=== PATIENT | male | born 1945 | race Caucasian/White ===

== ENCOUNTER → 2016-08-23 | Day surgery (SDC) | payer MEDICARE ==
[~2016-08-23] VITALS: Ht 175.3 cm; Wt 59.8 kg
[~2016-08-23] MED LIST: ACETAMINOPHEN 1000 MG/100 ML VIAL IV ONE; ACETAMINOPHEN/HYDROcodone 325 MG/10 MG TAB PO PRN; BUPIVACAINE LIPOSOME PF 1.3% 20 ML VIAL INFIL ONE; CHLORHEXIDINE GLUCONATE 2 % 1 PACK (2 CLOTHS) TOPICAL PRN; DEXA2TAB PO; FAMOTIDINE 20 MG/2 ML VIAL ONE; GABA300C5; GELFOAM SIZE 100 ONE; GENTAMICIN SULFATE 80 MG/2 ML VIAL ONE; HYDR-3583 PO; HYDROmorphone HCL PF 1 MG/ML VIAL IV PRN; HYDROmorphone HCL PF 2 MG/ML VIAL ONE; INSULIN HUMAN REGULAR 1,000 UNITS/10 ML VIAL SQ PRN; LACTATED RINGER'S 1000 ML INJ 1,000 ML IV ONE; LACTATED RINGER'S 1000 ML IV PRN; LIDOCAINE 1%/EPINEPHrine 1:100,000 SOLN 20 ML VIAL ONE; LISI-515 PO; METOPROLOL TARTRATE 25 MG TAB PO PRN; MIDAZOLAM HCL 2 MG/2 ML VIAL ONE; NEOSTIGMINE 3 MG/3 ML SYR IV ONE; ONDANSETRON HCL 4 MG/2 ML VIAL IV PUSH ONE; ONDANSETRON HCL 4 MG/2 ML VIAL IV PUSH PRN; PANT40TA3 PO; PHENYLEPH/NS 1000 MCG/10 ML SYR IV ONE; POVIDONE IODINE 5% (ANTISEPSIS KIT) 4 APPLICATIONS EACH NARE PRN; PROPOFOL 200 MG/20 ML AMP IV ONE; SODIUM CHLORID 0.9% 500 ML IV PRN; THROMBIN (TOPICAL) 5,000 UNIT VIAL ONE; TRAM50TA PO; ceFAZolin 1,000 MG/NS 100 ML IV SCH; ceFAZolin INJ 1,000 MG VIAL IV ONE; ePHEDrine/NS 25 MG/5 ML SYR IV ONE; fentaNYL CITRATE 250 MCG/5 ML AMP ONE
[2016-08-23 07:07] VITALS: BP 128/67; PULSE 49; RESP 16; TEMP 98.1; O2SAT 100
[2016-08-23] MEDS: LACTATED RINGER'S 1000 ML INJ 1,000 ML IV SCH ×2 (07:10→07:16)
--- NOTE | 2016-08-23 07:33 | RADRPT ---
EXAM DATE/TIME: 08/23/2016 06:57 [facility] COMPARISON: CHEST SINGLE AP, October 28, 2009, 9:39. INDICATIONS : Evaluate for pneumothorax, pneumonia or communicable disease. Preop chest for laminectomy today, no c hest complaints at this time, smoker, no chest surgery MEDICAL HISTORY : None. SURGICAL HISTORY : None. ENCOUNTER: Initial ACUITY: 1 day PAIN SCORE: 0/10 LOCATION: Bilateral chest FINDINGS: A single view of the chest demonstrates the lungs to be symmetrically aerated without evidence of mas s, infiltrate or effusion. The cardiomediastinal contours are unremarkable. Osseous structures are intact. CONCLUSION: No acute disease. Christian Swanson MD FACR on August 23, 2016 at 7:30 Board Certified Radiologist. This report was verified electronically.
[2016-08-23 07:36] LABS: AUTOMATED NEUTROPHIL # 3.2 TH/MM3 (1.8-7.7); BASOPHIL % 0.6 % (0.0-2.0); EOSINOPHIL # 0.1 TH/MM3 (0-0.4); EOSINOPHIL % 2.5 % (0.0-4.0); HEMATOCRIT 42.7 % (39.0-51.0); HEMO FLAGS DIFF FINAL; LYMPH % 30.4 % (9.0-44.0); LYMPHOCYTE # 1.8 TH/MM3 (1.0-4.8); MEAN CELL VOLUME 95.6 FL (80.0-100.0); MEAN CORPUSCULAR HEMOGLOBIN 31.6 PG (27.0-34.0); MEAN CORPUSCULAR HGB CONC 33.1 % (32.0-36.0); MONO % 11.3 % (0.0-8.0); NEUT % 55.2 % (16.0-70.0); PLATELET COUNT 158 TH/MM3 (150-450); RED BLOOD COUNT 4.46 MIL/MM3 (4.50-5.90); RED CELL DISTRIBUTION WIDTH 14.1 % (11.6-17.2); WHITE BLOOD COUNT 5.8 TH/MM3 (4.0-11.0)
[2016-08-23 07:43] LABS: APTT (PATIENT) 27.2 SEC (24.3-30.1); PROTHROMBIN TIME - PATIENT 10.7 SEC (9.8-11.6)
[2016-08-23 08:02] LABS: BICARBONATE 27.9 MEQ/L (21.0-32.0); POTASSIUM 4.1 MEQ/L (3.5-5.1)
--- NOTE | 2016-08-23 12:53 | HHI.DCPOC ---
Discharge Care Plan Diagnosis: (1) Lumbar stenosis Your Health Problems Are: Difficulty with ADL Incision/Drains Chronic Pain Goals to Promote Your Health * To prevent worsening of your condition and complications * To maintain your health at the optimal level Directions to Meet Your Goals Take your medications as prescribed Follow your dietary instruction Follow activity as directed Keep your appointments as scheduled Take your immunizations and boosters as scheduled If your symptoms worsen call your PCP, if no PCP go to Urgent Care Center or Emergency Room Smoking is Dangerous to Your Health. Avoid second hand smoke Call the 24-hour hour crisis hotline for domestic abuse at Kobi Rizzo MD August 23, 2016 12:53
--- NOTE | 2016-08-23 13:06 | PD.OP ---
Operative Report Date of Surgery: August 23, 2016 Preoperative Diagnosis: (1) Lumbar stenosis (2) Left lumbar radiculopathy 1. L4 5 stenosis with bilateral L5 radicular symptoms, neurogenic claudication 2. Central to left L5-S1 herniated nucleus pulposus 3. Left S1 radiculopathy Postoperative Diagnosis: (1) Lumbar stenosis (2) Left lumbar radiculopathy 1. L4 5 stenosis with bilateral L5 radicular symptoms, neurogenic claudication 2. Central to left L5-S1 herniated nucleus pulposus 3. Left S1 radiculopathy Procedure: 1. Bilateral L4 5 decompressive semi-laminectomy, medial facetectomy, decompression of thecal sac and bilateral L5 nerve root-microtechnique 2. Left L5 semi-hemilaminectomy, L5-S1 microdiscectomy Anesthesia: Gen. Surgeon: Kobi Rizzo Electrical Wiring Lineman(s): Abdoul Vick Operation and Findings: Procedure in detail: The patient was brought into the operating room and general endotracheal anesthesia induced without difficulty. URBAN hose and sequential compression devices were placed. The Villa catheter was placed. Lines were established by anesthesia. The patient was positioned on the concentric Juan M table with the side bolsters and all extremities appropriately padded. Appropriate time-out procedure was performed with all personnel present and in agreement. 1% Xylocaine with epinephrine was used for local infiltration over the incision site which was made just to the left of midline at the L5 level. The incision was carried sharply down to the lumbodorsal fascia which was incised approximately 1 cm lateral to the spinous processes. Reid elevator was used for subperiosteal elevation of paraspinous musculature and fascia away from the lamina at the L45 and subsequently the L5-S1 levels. The deep self- retaining retractor was placed sequentially at the appropriate level for each portion of the procedure. The appropriate levels were verified with intraoperative C-arm. Microscope was moved into place and used for the remainder of the procedure including the closure. At the L4 5 level starting on the left side and then working across the midline to the opposite side, the TPS drill with a 5 mm bone bur followed by the 4 mm nishi bur was used to remove the inferior two thirds of the more cephalad lamina and the superior aspect of the more caudal lamina along with a moderate amount of the bilateral medial facet, taking care not to disrupt the integrity of the facet or pars intra-articularis. The hypertrophied ligamentum flavum at each level was elevated away from the thecal sac with the thin ligament dissector and resected with the 15 blade knife and the Kerrison rongeur out to the level of the deep lateral recess to completely decompress the thecal sac and exiting nerve roots. The exiting L5 nerve roots were followed to the level of the medial pedicle on each side to ensure that they were well decompressed. Next, the retractor was moved down to the L5-S1 level on the left side and the level verified with intraoperative C-arm The 3 mm Kerrison rongeur was used to remove a small amount of the inferior left L5 lamina and the thin ligament dissector was used to release the ligamentum flavum which was elevated away from the thecal sac and resected with the Kerrison rongeur. Care was taken to preserve the facet. The exiting left S1 nerve root was located as it coursed around the left S1 pedicle and was followed back up to the thecal sac. The thecal sac and left S1 nerve root were gently retracted medially revealing an underlying annular tear with fragments of herniated disc material protruding through the tear. The annular tear was enlarged with the 11 blade knife and fragments of subannular herniated disc material were pushed down away from the thecal sac and removed with the micro- biopsy forceps. The patient appeared to have significantly desiccated disc material and was felt to be at high risk for recurrent disc herniation. Thus a small window was incised with the 11 blade knife in the annulus and a more thorough removal of desiccated disc within the L5-S1 intervertebral disc space performed. The nerve roots appeared well decompressed at the end of the procedure. No spinal fluid leakage was encountered. The disc and annulus at L4 5 level was visualized to make sure that there was no significant disc displacement or herniation. Bleeding was carefully controlled with the bipolar forceps. The closure was performed with 0 Vicryl interrupted for the deep and superficial fascia, with 3-0 Vicryl interrupted subcutaneous closure, and 4-0 Vicryl running subcuticular closure. A dressing of sterile Mastisol, Steri- Strips, and Primapore was placed. The patient was taken to recovery room in stable condition. All counts were correct at the end of the case. Estimated blood loss was 100 cc. No specimen was sent to pathology Kobi Rizzo MD August 23, 2016 13:06
--- NOTE | 2016-08-23 13:45 | RADRPT ---
EXAM DATE/TIME: 08/23/2016 09:17 [facility] COMPARISON: No previous studies available for comparison. INDICATIONS : Level localization MEDICAL HISTORY : Hypertension. Chronic obstructive pulmonary disease. Arthritis. Smoker. SURGICAL HISTORY : None. ENCOUNTER: Initial ACUITY: 1 day PAIN SCORE: Non-responsive. LOCATION: Lumbar spine. FINDINGS: A single lateral view of the lumbar spine was performed. Level localization device was placed at the second from the bottom disc space level which I suspect is L4-5.. CONCLUSION: Level localization device at the second from the bottom disc space level. Odin Irene MD on August 23, 2016 at 13:42 Board Certified Radiologist. This report was verified electronically.
[2016-08-23 14:00] VITALS: BP 140/70; PULSE 53; RESP 16; TEMP 96.9; O2SAT 97
--- NOTE | 2016-08-23 15:13 | EKG ---
Date Performed: 08/23/2016 Time Performed: 06:51:32 PTAGE: 70 years EKG: SINUS BRADYCARDIA BORDERLINE ECG PREVIOUS TRACING : 10/28/2009 15.47 Compared to previous tracing, the sinus rate is slower. DOCTOR: Lupillo Larkin Interpretating Date/Time 08/23/2016 15:13:12
== END | disposition home or self-care (01) ==
LOC: HSDC 06:16
PROVIDERS: ATTEND Neurological Surgery
DX: M51.17 Intervertebral disc disorders with radiculopathy, lumbosacral region (principal); M48.06 Spinal stenosis, lumbar region; G95.19 Other vascular myelopathies; I10 Essential (primary) hypertension; J44.9 Chronic obstructive pulmonary disease, unspecified; M19.90 Unspecified osteoarthritis, unspecified site; F17.200 Nicotine dependence, unspecified, uncomplicated; G62.9 Polyneuropathy, unspecified
CPT/HCPCS: 63030; 63047; 71010; 72020; 76000; 80048; 85025; 85610; 85730; 93005; C9290; J0131; J0690; J1170; J1580; J2250; J2370; J2405; J2710; J3010; J7120